=== PATIENT | female | born 1995 | race Caucasian/White ===

== ENCOUNTER 2017-07-29 14:11 | Emergency (ER) | payer OTHER, MEDICAID ==
[~2017-07-29] VITALS: Ht 160 cm; Wt 57.1 kg
[~2017-07-29 14:11] MED LIST: Advair Hfa; BACTRIM DS TAB1 EACH PO; NORCO 5-325 TA1 EACH PO; PROAIR HFA8.5 GM
[2017-07-29] MEDS ORDERED: MEDROLDOSEPACK PO (15:26)
[2017-07-29] MEDS ORDERED: VENTOLIN HFA 1818 GM INH (15:26)
[2017-07-29] MEDS ORDERED: ADVAIR HFA 230M12 GM INH (15:26)
[2017-07-29 15:59] VITALS: BP 117/76
== END 2017-07-29 16:00 | disposition home or self-care (01) ==
LOC: M.ERS 14:11
DX: J45.909 Unspecified asthma, uncomplicated (principal); J02.9 Acute pharyngitis, unspecified

== ENCOUNTER 2017-09-23 14:37 | Emergency (ER) | payer OTHER, MEDICAID ==
[~2017-09-23] VITALS: Ht 157.5 cm; Wt 54.4 kg
[~2017-09-23 14:37] MED LIST changes: +ADVAIR HFA 230M12 GM INH; +MEDROLDOSEPACK PO; +VENTOLIN HFA 1818 GM INH
[2017-09-23 15:10] LABS: URINE BILIRUBIN NEGATIVE (Negative); URINE BLOOD NEGATIVE (Negative); URINE CLARITY SL CLOUDY; URINE COLOR YELLOW; URINE GLUCOSE-RANDOM NEGATIVE (Negative); URINE KETONES NEGATIVE (Negative); URINE LEUKOCYTES-REFLEX TRACE (Negative); URINE NITRITE-REFLEX NEGATIVE (Negative); URINE PROTEIN NEGATIVE (Negative); URINE SPECIFIC GRAVITY >= 1.030 (1.005-1.030); URINE UROBILINOGEN 0.2 E.U./dl (0.2-1.0)
[2017-09-23 15:18] LABS: CASTS None Seen /LPF (None Seen); SQUAMOUS >10 Many /LPF (0-3)
[2017-09-23 15:19] LABS: BACTERIA-REFLEX 1-9 Few /HPF (None Seen); CRYSTALS None Seen /LPF (None Seen); URINE RBC 0-2 Rare /HPF (0-2); URINE WBC-REFLEX 0-5 Rare /HPF (0-5)
[2017-09-23] MEDS ORDERED: PROAIR HFA8.5 GM INH (15:29)
[2017-09-23] MEDS ORDERED: ADVAIR HFA 230M12 GM INH (15:29)
[2017-09-23 15:42] VITALS: BP 134/72
== END 2017-09-23 15:43 | disposition home or self-care (01) ==
LOC: M.ERS 14:37
PROVIDERS: Nurse Practitioner Family
DX: N72 Inflammatory disease of cervix uteri (principal); Z20.2 Contact with and (suspected) exposure to infections with a predominantly sexual mode of transmission; Z76.0 Encounter for issue of repeat prescription; J45.909 Unspecified asthma, uncomplicated; Z88.8 Allergy status to other drugs, medicaments and biological substances

== ENCOUNTER 2017-10-23 19:59 | Emergency (ER) | payer OTHER, MEDICAID ==
[~2017-10-23] VITALS: Ht 157.5 cm; Wt 56.7 kg
[~2017-10-23 19:59] MED LIST changes: +PROAIR HFA8.5 GM INH
[2017-10-23 20:00] VITALS: BP 127/85
[2017-10-23] MEDS ORDERED: KEFLEX500 M1 PO (20:22)
== END 2017-10-23 20:32 | disposition home or self-care (01) ==
LOC: M.ERS 19:59
DX: R21 Rash and other nonspecific skin eruption (principal); J45.909 Unspecified asthma, uncomplicated; Z88.8 Allergy status to other drugs, medicaments and biological substances

== ENCOUNTER 2017-11-23 21:15 | Emergency (ER) | payer OTHER, MEDICAID ==
[~2017-11-23] VITALS: Ht 157.5 cm; Wt 54.6 kg
[~2017-11-23 21:15] MED LIST changes: +KEFLEX500 M1 PO
[2017-11-23 21:56] LABS: URINE BILIRUBIN NEGATIVE (Negative); URINE BLOOD 3+ (Negative); URINE CLARITY CLEAR; URINE COLOR YELLOW; URINE GLUCOSE-RANDOM NEGATIVE (Negative); URINE KETONES NEGATIVE (Negative); URINE LEUKOCYTES-REFLEX 1+ (Negative); URINE NITRITE-REFLEX NEGATIVE (Negative); URINE PROTEIN NEGATIVE (Negative); URINE SPECIFIC GRAVITY 1.025 (1.005-1.030); URINE UROBILINOGEN 0.2 E.U./dl (0.2-1.0)
[2017-11-23] MEDS ORDERED: FLAGYL500 MG PO (22:07)
[2017-11-23 22:10] LABS: CASTS None Seen /LPF (None Seen); SQUAMOUS >10 Many /LPF (0-3)
[2017-11-23 22:11] LABS: URINE WBC-REFLEX 0-5 Rare /HPF (0-5)
[2017-11-23 22:12] LABS: BACTERIA-REFLEX 1-9 Few /HPF (None Seen); CRYSTALS None Seen /LPF (None Seen)
[2017-11-23] MEDS ORDERED: VENTOLIN HFA 1818 GM INH (22:15)
[2017-11-23] MEDS ORDERED: ADVAIR HFA 230M12 GM INH (22:15)
[2017-11-23 22:18] VITALS: BP 121/72
== END 2017-11-23 22:19 | disposition home or self-care (01) ==
LOC: M.ERS 21:15
PROVIDERS: Nurse Practitioner Family
DX: N76.0 Acute vaginitis (principal); B96.89 Other specified bacterial agents as the cause of diseases classified elsewhere; N72 Inflammatory disease of cervix uteri; J45.909 Unspecified asthma, uncomplicated

== ENCOUNTER 2017-11-24 00:27 | Emergency (ER) | payer OTHER, MEDICAID ==
[~2017-11-24] VITALS: Ht 157.5 cm; Wt 54.4 kg
[~2017-11-24 00:27] MED LIST changes: +FLAGYL500 MG PO
[2017-11-24 01:29] VITALS: BP 116/69
== END 2017-11-24 01:30 | disposition home or self-care (01) ==
LOC: M.ERS 00:27
DX: J45.901 Unspecified asthma with (acute) exacerbation (principal); Z88.8 Allergy status to other drugs, medicaments and biological substances

== ENCOUNTER 2018-04-15 23:18 | Observation (INO) | payer OTHER, MEDICAID ==
[~2018-04-15] VITALS: Ht 157.5 cm; Wt 61.7 kg
--- NOTE | ~2018-04-15 | OP ---
[address] [address] OPERATIVE REPORT Name: GRECIA MOYA Melissa Room: [address] [place] .R#: [id number] Admission: 04/16/18 Attend Phys: Gigi Carlos MD Discharge: Date of : 89 Report #: [id number] THIS REPORT FOR: //name// CC: [facility] physician/PCP Gigi Carlos DATE OF SERVICE: 04/16/2018 PREOPERATIVE DIAGNOSIS: Acute appendicitis. POSTOPERATIVE DIAGNOSIS: Acute appendicitis. OPERATIVE PROCEDURE: Laparoscopic appendectomy. OPERATING SURGEON: Gigi Carlos MD. INDICATION FOR THE PROCEDURE: The patient is a 22-year-old female who presented with complaints of 1-day history of right lower quadrant pain. Clinical exam and CT scan was suggestive of early appendicitis. The patient was advised laparoscopic appendectomy. PROCEDURE: After explaining to the patient in detail and informed consent was obtained, the patient was identified in the preoperative holding area. The patient was transferred to the operating room and was placed in supine position. Sequential compression devices were placed for DVT prophylaxis. Preoperative antibiotics were given. After induction of anesthesia, the abdomen was prepped and draped in a sterile fashion. Through a right upper quadrant 1 cm incision using Optiview technique, peritoneal cavity was entered and pneumoperitoneum was created. Thereafter, under direct vision, another 5 mm trocar was placed through a suprapubic incision approximately about 3 cm above the pubic symphysis, another 12 mm trocar was placed through a supraumbilical incision. On initial inspection, the patient was noted to have a mildly inflamed appendix. The mesoappendix was divided. The appendicular artery was coagulated using electrocautery. Two Endoloops were placed at the base of the appendix. One was placed distally and the appendix was divided and was retrieved using an EndoCatch through the lateral most incision. Thorough saline irrigation was given. Absolute hemostasis was ensured. The umbilical incision was closed in layers using 0 Vicryl for the fascia. Skin was closed with 4-0 Monocryl. Dermabond was applied. The patient was stable at the end of the procedure. The patient awoken up from anesthesia and was transferred to the recovery room in stable condition. ESTIMATED BLOOD LOSS: Minimal. CONDITION: [place] [address] OPERATIVE REPORT Name: GRECIA MOYA Melissa Room: [address]#: [id number] Admission: 04/16/18 Attend Phys: Gigi Carlos MD Discharge: Date of : 89 Report #: [id number] FLUIDS: Given per Anesthesia note. SPECIMEN SENT: Appendix. COMPLICATIONS: None. By: [id number] Carlos MD /nt
[2018-04-15 23:25] VITALS: BP 144/92
[2018-04-16 00:15] LABS: ABSOLUTE BASOPHILS 0.1 thou/uL (0.0-0.2); ABSOLUTE EOSINOPHILS 0.8 thou/uL (0.0-0.7); BASOPHILS 0.7 %; EOSINOPHILS 7.7 %; HEMATOCRIT 41.4 % (37.0-47.0); HEMOGLOBIN 13.9 gm/dL (12.0-15.0); LYMPHOCYTES 27.3 %; MCH 28.7 pg (26.0-34.0); MCHC 33.6 g/dL (28.0-37.0); MCV 85.3 fL (80.0-100.0); MONOCYTES 9.6 %; MPV 10.4 fl. (7.2-11.1); NUCLEATED RBCS 0 /100WBC; PLATELET COUNT* 195 thou/uL (150-400); POLYS 54.7 %; RBC 4.86 mil/uL (4.20-5.00); RDW-CV 12.7 % (10.5-14.5); WBC 10.9 thou/uL (4.0-11.0)
[2018-04-16 00:18] LABS: CALCIUM 8.8 mg/dL (8.5-10.1); CREATININE 0.7 mg/dL (0.6-1.3); POTASSIUM 3.7 mmol/L (3.5-5.1)
[2018-04-16 00:22] LABS: ALBUMIN 4.1 g/dL (3.4-5.0); TOTAL BILIRUBIN 0.4 mg/dL (<0.1-1.0); TOTAL PROTEIN 7.5 g/dL (6.4-8.2)
[2018-04-16 00:44] LABS: URINE BILIRUBIN NEGATIVE (Negative); URINE BLOOD 2+ (Negative); URINE CLARITY CLEAR; URINE COLOR YELLOW; URINE GLUCOSE-RANDOM NEGATIVE (Negative); URINE KETONES NEGATIVE (Negative); URINE LEUKOCYTES-REFLEX NEGATIVE (Negative); URINE NITRITE-REFLEX NEGATIVE (Negative); URINE PROTEIN NEGATIVE (Negative)
[2018-04-16 00:53] LABS: AMP/METHAMP Negative (Negative); BARBITURATES Negative (Negative); BENZODIAZEPINES Negative (Negative); COCAINE Negative (Negative); METHADONE Negative (Negative); OPIATES Negative (Negative); PCP Negative (Negative); THC Negative (Negative)
[2018-04-16 01:18] LABS: CASTS None Seen /LPF (None Seen); MUCUS 0-3 Light strn/LPF (None Seen); SQUAMOUS >10 Many /LPF (0-3)
[2018-04-16 01:19] LABS: URINE RBC 0-2 Rare /HPF (0-2); URINE WBC-REFLEX 0-5 Rare /HPF (0-5)
[2018-04-16 01:20] LABS: BACTERIA-REFLEX 1-9 Few /HPF (None Seen); CRYSTALS None Seen /LPF (None Seen)
[2018-04-16 03:03] VITALS: BP 105/77
[2018-04-16 03:10] VITALS: BP 115/74
--- NOTE | 2018-04-16 06:21 | NUR ---
ADMITTED TO ICU BED 1, MED/SURG OVERFLOW, AT 0305. NPO FOR APPENDECTOMY THIS AM. RLQ PAIN TREATED WITH PRN MORPHINE ORDERED X1 WITH ADEQUATE RELIEF. VSS. ORIENTED TO ROOM/CALL LIGHT. IVF INFUSING ORDERED. CALL LIGHT WITHIN REACH.
--- NOTE | 2018-04-16 08:53 | NUR ---
PT TAKEN PER BED TO SURGERY PER SURGICAL STAFF. CONSENT OBTAINED.
--- NOTE | 2018-04-16 10:17 | NUR ---
PT ARRIVED BACK FROM SURGERY. 3 SITES CLOSED WITH DERMABOND TO ABD. PT ORIENTED BUT DROWSEY. MOTHER AT BEDSIDE.
[2018-04-16 10:20] VITALS: BP 104/56
--- NOTE | 2018-04-16 18:20 | NUR ---
PATIENT TRANSFERRED FROM ICU VIA WHEELCHAIR. PATIENT UP IN CHAIR. IV FLUIDS INFUSING. PATIENT C/O ABDOMINAL PAIN, STATES MORPHINE IS NOT EFFECTIVE. PAGED DR MICHAEL AND MEDS CHANGED. AGREE WITH PREVIOUS ASSESSMENT. LAP SITES INTACT. FAMILY AT BEDSIDE. CALL LIGHT WITHIN REACH. HOURLY ROUNDING COMPLETED. CALL WILL CONTINUE WITH PLAN OF CARE.
[2018-04-17] VITALS: BP 105/53
--- NOTE | 2018-04-17 06:01 | NUR ---
PATIENT SLEPT WELL DURING THIS SHIFT. PT UP AD DANGELO IN ROOM. PT WITH FLUIDS INFUSING PER DR ORDER. PT WITH THREE ABDOMINAL LAP SITES; DSG C/D/I. PT REQUESTED PAIN MEDICATION X1 AND RECEIVED ONE HYDROCODONE. PT ABLE TO SLEEP AFTERWARDS. PT DENIES NEEDS AT THIS TIME. FREQUENTLY USED ITEMS AND CALL LIGHT WITHIN REACH. SIDERAILS UPX2. WILL CONTINUE TO MONITOR.
[2018-04-17 08:40] VITALS: BP 107/59
[2018-04-17] MEDS ORDERED: HYDROCODONE-AP1 EAC6 PO (10:06)
[2018-04-17 10:24] VITALS: BP 107/59
[2018-04-17 10:51] VITALS: BP 107/59
--- NOTE | 2018-04-17 11:30 | NUR ---
PATIENT GIVEN DISCHARGE INSTRUCTIONS AND PRESCRIPTIONS AT THIS TIME. PATIENT AND MOM VERBALIZED UNDERSTANDING IN REGARDS TO FOLLOW UP APPOINTMENTS AND NEW MEDICATIONS. PATIENT'S IV REMOVED. AMBULATED OFF NURSING UNIT WITH NURSING STAFF. DISCHARGED WITH ALL BELONGINGS.
--- NOTE | 2018-04-18 17:08 | PATH ---
[address] [address] PATHOLOGY RPT PROCEDURE Name: NITAGRECIA Torres Room: [address] Meaghan Rodrigez#: [id number] Admission: 04/16/18 Date of : [birth year] Discharge: 04/17/18 Report #: [id number] Path Case #: [id number] [facility] Accession Number: [id number] . 01 Material submitted: . APPENDIX . 01 Clinician provided ICD-10: K35.80 . 01 Clinical history: . Acute appendicitis . 02 Diagnosis: Appendix: - Acute appendicitis, periappendicitis and serositis. . (DOMINIC:vjm;04/18/2018) AGA/04/18/2018 . 02 Electronically signed: . Endy Jimenez MD, Pathologist NPI- [id number] . 01 Gross description: . The specimen is received in formalin, labeled "lucie Decker". Received is a vermiform appendix measuring 6.1 cm in length by up to 0.9 cm in diameter with a small amount of attached mesoappendix. The serosal surface is pink-quiles with moderate vasculature. Sectioning reveals a patent to slightly dilated lumen filled with fecal material. No distinct nodules, lesions or perforations are noted grossly. The specimen is submitted representatively in cassettes A1 and A2, with the proximal margin and bisected tip submitted in cassette A1. (CAA; 04/17/2018) QAC/QAC . 02 Pathologist provided ICD-10: K35.80 . 02 CPT . 433709 Specimen Comment: A courtesy copy of this report has been sent to Specimen Comment: [phone]. Specimen Comment: Report sent to Performed at: [address] [id number] MD Ayden Tang MD Phone: [phone] [place] [address] PATHOLOGY RPT PROCEDURE Name: GRECIA MOYA Room: [address] MAlexanderRAlexander#: [id number] Admission: 04/16/18 Date of : 89 Discharge: 04/17/18 Report #: [id number] Path Case #: [id number] Performed at: 02 [facility] [address] [place] [id number] MD Endy Jimenez MD Phone: [phone]
== END 2018-04-17 11:30 | disposition home or self-care (01) ==
LOC: M.ERS 23:18 → M.3W 04-16 01:30 → M.TBA-ER 04-16 01:30 → M.ERS 04-16 01:30 → M.ICU 04-16 01:30 → M.3W 04-16 16:50
PROVIDERS: Emergency Medicine; ADMIT Surgery
DX: K35.80 Unspecified acute appendicitis (principal); J45.909 Unspecified asthma, uncomplicated; N83.209 Unspecified ovarian cyst, unspecified side; N93.9 Abnormal uterine and vaginal bleeding, unspecified; Z79.899 Other long term (current) drug therapy

== ENCOUNTER 2018-05-15 19:23 | Emergency (ER) | payer OTHER, MEDICAID ==
[~2018-05-15] VITALS: Ht 157.5 cm; Wt 63.5 kg
[~2018-05-15 19:23] MED LIST changes: +HYDROCODONE-AP1 EAC6 PO
[2018-05-15 19:50] LABS: URINE BILIRUBIN NEGATIVE (Negative); URINE BLOOD NEGATIVE (Negative); URINE CLARITY CLEAR; URINE COLOR YELLOW; URINE GLUCOSE-RANDOM NEGATIVE (Negative); URINE KETONES TRACE (Negative); URINE LEUKOCYTES-REFLEX NEGATIVE (Negative); URINE NITRITE-REFLEX NEGATIVE (Negative); URINE PROTEIN NEGATIVE (Negative); URINE SPECIFIC GRAVITY 1.025 (1.005-1.030); URINE UROBILINOGEN 0.2 E.U./dl (0.2-1.0)
[2018-05-15 20:33] VITALS: BP 122/64
== END 2018-05-15 20:33 | disposition home or self-care (01) ==
LOC: M.ERS 19:23
PROVIDERS: Nurse Practitioner Family
DX: N89.8 Other specified noninflammatory disorders of vagina (principal); Z70.8 Other sex counseling; J45.909 Unspecified asthma, uncomplicated

== ENCOUNTER 2018-07-20 15:52 | Emergency (ER) | payer OTHER ==
[~2018-07-20] VITALS: Ht 162.6 cm; Wt 68.0 kg
[2018-07-20] MEDS ORDERED: TRIAMCINOLONE A80 G2 TOP (16:11)
[2018-07-20 16:30] VITALS: BP 138/99
== END 2018-07-20 16:30 | disposition home or self-care (01) ==
LOC: M.ERS 15:52
DX: L30.9 Dermatitis, unspecified (principal); Z76.0 Encounter for issue of repeat prescription; J45.909 Unspecified asthma, uncomplicated

== ENCOUNTER 2018-11-01 04:46 | Emergency (ER) | payer OTHER ==
[~2018-11-01] VITALS: Ht 157.5 cm; Wt 59.9 kg
[~2018-11-01 04:46] MED LIST changes: +TRIAMCINOLONE A80 G2 TOP
[2018-11-01] MEDS ORDERED: ADVAIR HFA 230M12 GM INH (04:57)
[2018-11-01 05:22] LABS: ABSOLUTE EOSINOPHILS 0.7 thou/uL (0.0-0.7); ABSOLUTE LYMPHOCYTES 2.9 thou/uL (0.8-5.3); ABSOLUTE NEUTROPHILS 4.9 thou/uL (1.6-8.1); BASOPHILS 0.5 %; EOSINOPHILS 7.1 %; LYMPHOCYTES 30.4 %; MCH 29.2 pg (26.0-34.0); MCHC 34.3 g/dL (28.0-37.0); MCV 85.2 fL (80.0-100.0); MONOCYTES 10.6 %; MPV 9.4 fl. (7.2-11.1); NUCLEATED RBCS 0 /100WBC; PLATELET COUNT* 201 thou/uL (150-400); POLYS 51.4 %; RBC 4.45 mil/uL (4.20-5.00); WBC 9.5 thou/uL (4.0-11.0)
[2018-11-01 05:30] LABS: CALCIUM 8.7 mg/dL (8.5-10.1); CREATININE 0.7 mg/dL (0.6-1.3); POTASSIUM 3.7 mmol/L (3.5-5.1)
[2018-11-01 05:33] LABS: PROTIME 10.3 Seconds (9.20-11.50)
[2018-11-01 05:35] LABS: ALBUMIN 3.7 g/dL (3.4-5.0); TOTAL BILIRUBIN 0.3 mg/dL (<0.1-1.0); TOTAL PROTEIN 7.2 g/dL (6.4-8.2)
[2018-11-01 09:46] VITALS: BP 108/57
== END 2018-11-01 09:48 | disposition home or self-care (01) ==
LOC: M.ERS 04:46
PROVIDERS: Emergency Medicine
DX: O73.1 Retained portions of placenta and membranes, without hemorrhage (principal); N93.9 Abnormal uterine and vaginal bleeding, unspecified; J45.909 Unspecified asthma, uncomplicated

== ENCOUNTER 2018-11-22 12:03 | Emergency (ER) | payer OTHER ==
[~2018-11-22] VITALS: Ht 157.5 cm; Wt 61.2 kg
[2018-11-22] MEDS ORDERED: TRIAMCINOLONE A80 G2 TOP ×2 (12:09→12:19)
[2018-11-22] MEDS ORDERED: PROAIR HFA8.5 GM INH ×2 (12:09→12:19)
[2018-11-22] MEDS ORDERED: ADVAIR HFA 230M12 GM INH (12:19)
[2018-11-22 12:30] VITALS: BP 108/76
== END 2018-11-22 12:31 | disposition home or self-care (01) ==
LOC: M.ERS 12:03
DX: L29.9 Pruritus, unspecified (principal); Z76.0 Encounter for issue of repeat prescription; J45.909 Unspecified asthma, uncomplicated

== ENCOUNTER 2019-01-26 14:47 | Emergency (ER) | payer OTHER ==
[~2019-01-26] VITALS: Ht 157.5 cm; Wt 61.2 kg
[2019-01-26 15:10] LABS: URINE BILIRUBIN NEGATIVE (Negative); URINE BLOOD 3+ (Negative); URINE CLARITY CLEAR; URINE COLOR YELLOW; URINE GLUCOSE-RANDOM NEGATIVE (Negative); URINE KETONES NEGATIVE (Negative); URINE LEUKOCYTES-REFLEX 1+ (Negative); URINE NITRITE-REFLEX NEGATIVE (Negative); URINE PROTEIN NEGATIVE (Negative)
[2019-01-26 15:19] LABS: BACTERIA-REFLEX 1-9 Few /HPF (None Seen); MUCUS 0-3 Light strn/LPF (None Seen); SQUAMOUS >10 Many /LPF (0-3); URINE WBC-REFLEX 6-15 Few /HPF (0-5)
[2019-01-26 15:21] LABS: CASTS None Seen /LPF (None Seen); CRYSTALS None Seen /LPF (None Seen)
[2019-01-26] MEDS ORDERED: KEFLEX500 M1 PO (15:28)
[2019-01-26] MEDS ORDERED: DOXYCYCLINE 10100 MG PO (15:28)
[2019-01-26 15:33] VITALS: BP 114/87
== END 2019-01-26 15:34 | disposition home or self-care (01) ==
LOC: M.ERS 14:47
PROVIDERS: Nurse Practitioner Family
DX: N72 Inflammatory disease of cervix uteri (principal); N39.0 Urinary tract infection, site not specified; J45.909 Unspecified asthma, uncomplicated

== ENCOUNTER 2019-07-26 14:22 | Emergency (ER) | payer MEDICAID ==
[~2019-07-26] VITALS: Ht 157.5 cm; Wt 59.0 kg
[~2019-07-26 14:22] MED LIST changes: +DOXYCYCLINE 10100 MG PO
[2019-07-26 15:21] LABS: URINE BILIRUBIN NEGATIVE (Negative); URINE BLOOD NEGATIVE (Negative); URINE CLARITY CLEAR; URINE COLOR YELLOW; URINE GLUCOSE-RANDOM NEGATIVE (Negative); URINE LEUKOCYTES-REFLEX NEGATIVE (Negative); URINE NITRITE-REFLEX NEGATIVE (Negative); URINE PROTEIN NEGATIVE (Negative)
[2019-07-26 15:24] LABS: URINE KETONES 3+ (Negative)
[2019-07-26 15:25] LABS: INFLUENZA A ANTIGEN Negative (Negative); INFLUENZA B ANTIGEN Negative (Negative)
[2019-07-26 15:38] LABS: HEMATOCRIT 41.8 % (37.0-47.0); HEMOGLOBIN 14.1 gm/dL (12.0-15.0); MCH 28.9 pg (26.0-34.0); MCHC 33.8 g/dL (28.0-37.0); MCV 85.4 fL (80.0-100.0); MPV 9.9 fl. (7.2-11.1); NUCLEATED RBCS 0 /100WBC; PLATELET COUNT* 138 thou/uL (150-400); RBC 4.89 mil/uL (4.20-5.00); RDW-CV 12.7 % (10.5-14.5); WBC 15.1 thou/uL (4.0-11.0)
[2019-07-26 15:49] LABS: MONOTEST (MONOSPOT)* NEGATIVE (Negative)
[2019-07-26 15:51] LABS: CALCIUM 8.5 mg/dL (8.5-10.1); CREATININE 0.7 mg/dL (0.6-1.3); POTASSIUM 3.3 mmol/L (3.5-5.1)
[2019-07-26 15:55] LABS: ABSOLUTE BASOPHILS 0.2 thou/uL (0.0-0.2); ABSOLUTE LYMPHOCYTES 0.6 thou/uL (0.8-5.3); ABSOLUTE MONOCYTES 1.2 thou/uL (0.0-1.2); ABSOLUTE NEUTROPHILS 13.1 thou/uL (1.6-8.1); ALBUMIN 4.5 g/dL (3.4-5.0); ATYPICAL LYMPHS 2 %; PLATELET ESTIMATE DECREASED; TOTAL BILIRUBIN 0.9 mg/dL (<0.1-1.0); TOTAL PROTEIN 8.3 g/dL (6.4-8.2)
[2019-07-26] MEDS ORDERED: NAPROSYN500 MG PO (16:52)
[2019-07-26] MEDS ORDERED: AUGMENTIN 875-1 EACH PO (16:52)
[2019-07-26] MEDS ORDERED: PREDNISONE 20 M20 M1 PO (16:52)
[2019-07-26] MEDS ORDERED: ONDANSETRON HCL4 M2 PO (16:52)
[2019-07-26] MEDS ORDERED: ZANAFLEX4 MG PO (16:52)
[2019-07-26 17:14] VITALS: BP 121/80
== END 2019-07-26 17:15 | disposition home or self-care (01) ==
LOC: M.ERS 14:22
PROVIDERS: Nurse Practitioner Family
DX: J03.90 Acute tonsillitis, unspecified (principal); J45.909 Unspecified asthma, uncomplicated

== ENCOUNTER 2019-08-27 11:03 | Emergency (ER) | payer OTHER, MEDICAID ==
[~2019-08-27] VITALS: Ht 160 cm; Wt 54.0 kg
[~2019-08-27 11:03] MED LIST changes: +AUGMENTIN 875-1 EACH PO; +NAPROSYN500 MG PO; +ONDANSETRON HCL4 M2 PO; +PREDNISONE 20 M20 M1 PO; +ZANAFLEX4 MG PO
[2019-08-27] MEDS ORDERED: FLAGYL500 M1 PO (11:11)
[2019-08-27 11:37] LABS: INFLUENZA A ANTIGEN Negative (Negative); INFLUENZA B ANTIGEN Negative (Negative)
[2019-08-27] MEDS ORDERED: TYLENOL WITH CO1 TA1 PO (11:39)
[2019-08-27] MEDS ORDERED: AMOXICILLIN 50500 MG PO (11:39)
[2019-08-27 11:44] VITALS: BP 116/60
== END 2019-08-27 11:46 | disposition home or self-care (01) ==
LOC: M.ERS 11:03
PROVIDERS: Physician Assistant
DX: J02.9 Acute pharyngitis, unspecified (principal); J45.909 Unspecified asthma, uncomplicated

== ENCOUNTER 2020-10-09 16:21 | Emergency (ER) | payer OTHER, MEDICAID ==
[~2020-10-09] VITALS: Ht 157.5 cm; Wt 56.7 kg
[~2020-10-09 16:21] MED LIST changes: +AMOXICILLIN 50500 MG PO; +FLAGYL500 M1 PO; +TYLENOL WITH CO1 TA1 PO
[2020-10-09] MEDS ORDERED: PROAIR HFA8.5 GM INH (16:35)
[2020-10-09] MEDS ORDERED: ZOLOFT50 M1 PO (16:35)
[2020-10-09 16:48] LABS: URINE BILIRUBIN NEGATIVE (Negative); URINE BLOOD NEGATIVE (Negative); URINE CLARITY CLEAR; URINE COLOR YELLOW; URINE GLUCOSE-RANDOM NEGATIVE (Negative); URINE KETONES NEGATIVE (Negative); URINE NITRITE-REFLEX NEGATIVE (Negative); URINE PROTEIN NEGATIVE (Negative); URINE SPECIFIC GRAVITY <= 1.005 (1.005-1.030); URINE UROBILINOGEN 0.2 E.U./dl (0.2-1.0)
[2020-10-09 16:51] LABS: URINE LEUKOCYTES-REFLEX 2+ (Negative)
[2020-10-09 17:03] LABS: ABSOLUTE EOSINOPHILS 0.6 thou/uL (0.0-0.7); ABSOLUTE LYMPHOCYTES 2.6 thou/uL (0.8-5.3); ABSOLUTE MONOCYTES 0.9 thou/uL (0.0-1.2); BASOPHILS 0.4 %; EOSINOPHILS 7.6 %; HEMATOCRIT 37.8 % (37.0-47.0); HEMOGLOBIN 12.5 gm/dL (12.0-15.0); LYMPHOCYTES 31.5 %; MCH 28.1 pg (26.0-34.0); MCHC 33.1 g/dL (28.0-37.0); MCV 84.8 fL (80.0-100.0); MONOCYTES 11.4 %; MPV 8.8 fl. (7.2-11.1); NUCLEATED RBCS 0 /100WBC; PLATELET COUNT* 201 thou/uL (150-400); POLYS 49.1 %; RBC 4.45 mil/uL (4.20-5.00); RDW-CV 13.1 % (10.5-14.5); WBC 8.1 thou/uL (4.0-11.0)
[2020-10-09 17:07] LABS: SQUAMOUS >10 Many /LPF (0-3)
[2020-10-09 17:08] LABS: URINE WBC-REFLEX 6-15 Few /HPF (0-5)
[2020-10-09 17:09] LABS: BACTERIA-REFLEX 1-9 Few /HPF (None Seen); CASTS None Seen /LPF (None Seen); CRYSTALS None Seen /LPF (None Seen); URINE RBC 0-2 Rare /HPF (0-2)
[2020-10-09 17:13] LABS: CALCIUM 9.3 mg/dL (8.5-10.1); CREATININE 0.6 mg/dL (0.6-1.3); POTASSIUM 3.6 mmol/L (3.5-5.1)
[2020-10-09] MEDS ORDERED: BACTRIM DS TAB1 EACH PO ×2 (17:14→17:19)
[2020-10-09 17:18] LABS: ALBUMIN 4.1 g/dL (3.4-5.0); TOTAL BILIRUBIN 0.6 mg/dL (<0.1-1.0); TOTAL PROTEIN 7.4 g/dL (6.4-8.2)
[2020-10-09] MEDS ORDERED: TRIAMCINOLONE A80 G2 TOP (17:20)
[2020-10-09 17:21] VITALS: BP 133/69
[2020-10-09] MEDS ORDERED: FLAGYL500 M1 PO (17:24)
== END 2020-10-09 17:22 | disposition home or self-care (01) ==
LOC: M.ERS 16:21
PROVIDERS: Physician Assistant
DX: N39.0 Urinary tract infection, site not specified (principal); A59.9 Trichomoniasis, unspecified; J45.909 Unspecified asthma, uncomplicated

== ENCOUNTER 2020-10-26 16:07 | Emergency (ER) | payer OTHER, MEDICAID ==
[~2020-10-26] VITALS: Ht 157.5 cm; Wt 57.6 kg
[~2020-10-26 16:07] MED LIST changes: +ZOLOFT50 M1 PO
[2020-10-26] MEDS ORDERED: ADVAIR 250-501 EACH INH (16:23)
[2020-10-26] MEDS ORDERED: FLEXERIL PO (16:46)
[2020-10-26 16:53] VITALS: BP 116/64
== END 2020-10-26 16:53 | disposition home or self-care (01) ==
LOC: M.ERS 16:07
DX: S16.1XXA Strain of muscle, fascia and tendon at neck level, initial encounter (principal); J45.909 Unspecified asthma, uncomplicated; Z79.899 Other long term (current) drug therapy; X50.1XXA Overexertion from prolonged static or awkward postures, initial encounter; Y93.89 Activity, other specified; Y92.89 Other specified places as the place of occurrence of the external cause; Y99.9 Unspecified external cause status

== ENCOUNTER 2021-05-20 10:04 | Emergency (ER) | payer OTHER, MEDICAID ==
[~2021-05-20] VITALS: Ht 162.6 cm; Wt 54.4 kg
[~2021-05-20 10:04] MED LIST changes: +ADVAIR 250-501 EACH INH; +FLEXERIL PO
[2021-05-20 10:33] LABS: ABSOLUTE EOSINOPHILS 0.5 thou/uL (0.0-0.7); ABSOLUTE LYMPHOCYTES 1.9 thou/uL (0.8-5.3); ABSOLUTE MONOCYTES 0.6 thou/uL (0.0-1.2); ABSOLUTE NEUTROPHILS 3.3 thou/uL (1.6-8.1); BASOPHILS 0.5 %; EOSINOPHILS 8.5 %; HEMATOCRIT 39.7 % (37.0-47.0); HEMOGLOBIN 13.4 gm/dL (12.0-15.0); LYMPHOCYTES 29.4 %; MCH 28.7 pg (26.0-34.0); MCHC 33.6 g/dL (28.0-37.0); MCV 85.3 fL (80.0-100.0); MONOCYTES 9.4 %; NUCLEATED RBCS 0 /100WBC; PLATELET COUNT* 194 thou/uL (150-400); POLYS 52.2 %; RBC 4.66 mil/uL (4.20-5.00); RDW-CV 13.2 % (10.5-14.5); WBC 6.3 thou/uL (4.0-11.0)
[2021-05-20 10:49] LABS: CALCIUM 9.1 mg/dL (8.5-10.1); CREATININE 0.7 mg/dL (0.6-1.3); POTASSIUM 4.4 mmol/L (3.5-5.1)
[2021-05-20 10:54] LABS: ALBUMIN 3.9 g/dL (3.4-5.0); TOTAL BILIRUBIN 0.6 mg/dL (<0.1-1.0); TOTAL PROTEIN 7.5 g/dL (6.4-8.2)
[2021-05-20 11:45] LABS: URINE BILIRUBIN NEGATIVE (Negative); URINE BLOOD TRACE (Negative); URINE CLARITY CLEAR; URINE COLOR YELLOW; URINE GLUCOSE-RANDOM NEGATIVE (Negative); URINE KETONES NEGATIVE (Negative); URINE LEUKOCYTES-REFLEX NEGATIVE (Negative); URINE NITRITE-REFLEX NEGATIVE (Negative); URINE PROTEIN NEGATIVE (Negative); URINE UROBILINOGEN 0.2 E.U./dl (0.2-1.0)
[2021-05-20] MEDS ORDERED: DOXYCYCLINE 10100 MG PO (11:58)
[2021-05-20] MEDS ORDERED: SUPRAX400 M1 PO (11:58)
[2021-05-20 12:04] VITALS: BP 134/72
== END 2021-05-20 12:05 | disposition home or self-care (01) ==
LOC: M.ERS 10:04
PROVIDERS: Physician Assistant
DX: A64 Unspecified sexually transmitted disease (principal); J45.909 Unspecified asthma, uncomplicated; Z79.899 Other long term (current) drug therapy